=== PATIENT | female | born 1995 | race Hispanic/Latino ===

== ENCOUNTER 2016-06-06 12:49 | Emergency (ER) | payer SELFPAY ==
[~2016-06-06] VITALS: Ht 167.6 cm; Wt 87.5 kg
[~2016-06-06 12:49] MED LIST: IBUPROFEN800 MG PO; NAPROSYN500 MG PO; NORCO 5/3251 TABLET PO; PERCOCET 5/31 TABLET PO; PRENATAL TABLE1 EAC3 PO; ZOFRAN ODT4 MG PO; ZOFRAN4 MG PO
[2016-06-06 13:48] LABS: HEMATOCRIT 39.6 % (36.0-46.0); MCH 28.2 PG (29.0-34.0); MCHC 34.3 G/DL (30.0-36.0); MCV 82.2 FL (83-99); MEAN PLAT.VOLUME 11.3 uM^3 (9.5-12.4); PLATELET COUNT 223 K/uL (156-360); RBC DIS.WIDTH-CV 13.3 % (11.8-14.6); RBC DIS.WIDTH-SD 39.1 % (39-53); RED BLOOD COUNT 4.82 M/uL (3.80-5.20); WHITE BLOOD COUNT 7.6 K/uL (4.1-10.2)
[2016-06-06 14:00] LABS: CHLORIDE 108 mEq/L (99-109); SODIUM 141 mEq/L (136-147)
[2016-06-06 14:02] LABS: GLUCOSE 111 mg/dL (70-99)
[2016-06-06 14:04] LABS: ANION GAP 12 MEQ/L (2-14)
[2016-06-06 14:05] LABS: TOTAL BILIRUBIN 0.3 mg/dL (0.0-1.0)
[2016-06-06 14:06] LABS: ALKALINE PHOSPHATASE 100 IU/L (3-129); GFR ESTIMATE (CALCULATED) > 59 mL/min/
[2016-06-06 14:07] LABS: UREA NITROGEN (BUN) 12 mg/dL (9-23)
[2016-06-06 14:15] LABS: QUANTITATIVE HCG < 4.0 MIU/ML
[2016-06-06 15:35] LABS: LIPASE 21 U/L (1.0-51.0)
[2016-06-06 16:31] LABS: BILIRUBIN NEGATIVE; BLOOD NEGATIVE; COLOR YELLOW ((YELLOW)); GLUCOSE (STRIP) NEGATIVE; KETONES NEGATIVE; LEUKOCYTES NEGATIVE; NITRITE NEGATIVE; PROTEIN (STRIP) TRACE; SPECIFIC GRAVITY 1.031 (1.000-1.030); UROBILINOGEN 0.2 MG/DL (0.2-1.0)
[2016-06-06 16:42] LABS: ADD MIUA? NO; UCUL ADDED? NO
[2016-06-06] MEDS ORDERED: ULTRACET1 TABLET PO (17:07)
[2016-06-06] MEDS ORDERED: ZOFRAN ODT4 MG PO (17:07)
[2016-06-06] MEDS ORDERED: MOTRIN600 MG PO (17:07)
[2016-06-06 17:29] VITALS: BP 130/87
== END 2016-06-06 17:32 | disposition home or self-care (01) ==
LOC: EME 12:49
DX: K80.70 Calculus of gallbladder and bile duct without cholecystitis without obstruction (principal); E86.0 Dehydration
CPT/HCPCS: 76705; 80053; 81003; 83690; 84702; 85027; 99281; 99284; J3010

== ENCOUNTER 2016-07-02 08:49 | Day surgery (SDC) | payer OTHER ==
[~2016-07-02] VITALS: Ht 165.1 cm; Wt 90.0 kg
[~2016-07-02 08:49] MED LIST changes: +MOTRIN600 MG PO; +ULTRACET1 TABLET PO
[2016-07-02 09:03] VITALS: BP 123/81
[2016-07-02] MEDS ORDERED: COLACE100 MG PO (12:06)
[2016-07-02] MEDS ORDERED: PERCOCET 5/31 TABLET PO (12:06)
[2016-07-02 14:07] VITALS: BP 121/70
[2016-07-02 15:10] VITALS: BP 126/61
[2016-07-02 16:36] VITALS: BP 124/65
== END 2016-07-02 17:17 | disposition home or self-care (01) ==
LOC: SDC 08:49
PROC: 0FT44ZZ Resection of Gallbladder, Percutaneous Endoscopic Approach (ICD-10-PCS; principal; 2016-07-02)
DX: K80.10 Calculus of gallbladder with chronic cholecystitis without obstruction (principal)
CPT/HCPCS: 88304; J0330; J0690; J1100; J1170; J1885; J2250; J2405; J2710; J2765; J3010

== ENCOUNTER 2016-11-08 20:45 | Emergency (ER) | payer OTHER ==
[~2016-11-08] VITALS: Ht 167.6 cm; Wt 90.8 kg
[~2016-11-08 20:45] MED LIST changes: +COLACE100 MG PO
[2016-11-08 23:11] LABS: HEMATOCRIT 38.5 % (36.0-46.0); MCH 27.5 PG (29.0-34.0); MCHC 32.7 G/DL (30.0-36.0); MCV 84.1 FL (83-99); MEAN PLAT.VOLUME 11.7 uM^3 (9.5-12.4); PLATELET COUNT 214 K/uL (156-360); RBC DIS.WIDTH-SD 39.7 % (39-53); RED BLOOD COUNT 4.58 M/uL (3.80-5.20); WHITE BLOOD COUNT 8.4 K/uL (4.1-10.2)
[2016-11-08 23:20] LABS: CHLORIDE 109 mEq/L (99-109); POTASSIUM 3.8 mEq/L (3.7-5.4); SODIUM 141 mEq/L (136-147)
[2016-11-08 23:22] LABS: GLUCOSE 85 mg/dL (70-99)
[2016-11-08 23:23] LABS: ANION GAP 7 MEQ/L (2-14)
[2016-11-08 23:26] LABS: GFR ESTIMATE (CALCULATED) > 59 mL/min/; UREA NITROGEN (BUN) 12 mg/dL (9-23)
[2016-11-08 23:36] LABS: QUANTITATIVE HCG < 4.0 MIU/ML
[2016-11-09 00:23] VITALS: BP 145/99
== END 2016-11-09 00:24 | disposition home or self-care (01) ==
LOC: EME 20:45
PROVIDERS: Physician Assistant
DX: R51 Headache (principal); H53.149 Visual discomfort, unspecified
CPT/HCPCS: 70450; 80048; 84702; 85027; 99281; 99284; J1200; J2765; J7030

== ENCOUNTER 2017-04-30 16:08 | Emergency (ER) | payer OTHER ==
[~2017-04-30] VITALS: Ht 167.6 cm; Wt 91.2 kg
[2017-04-30 19:55] LABS: HEMATOCRIT 42.3 % (36.0-46.0); MCH 28.3 PG (29.0-34.0); MCHC 33.6 G/DL (30.0-36.0); MCV 84.3 FL (83-99); MEAN PLAT.VOLUME 11.2 uM^3 (9.5-12.4); PLATELET COUNT 212 K/uL (156-360); RBC DIS.WIDTH-CV 12.7 % (11.8-14.6); RBC DIS.WIDTH-SD 38.7 % (39-53); RED BLOOD COUNT 5.02 M/uL (3.80-5.20); WHITE BLOOD COUNT 7.2 K/uL (4.1-10.2)
[2017-04-30 20:00] LABS: CHLORIDE 104 mEq/L (99-109); POTASSIUM 3.9 mEq/L (3.7-5.4); SODIUM 141 mEq/L (136-147)
[2017-04-30 20:02] LABS: GLUCOSE 119 mg/dL (70-99)
[2017-04-30 20:03] LABS: ANION GAP 12 MEQ/L (2-14)
[2017-04-30 20:04] LABS: TOTAL BILIRUBIN 0.2 mg/dL (0.0-1.0)
[2017-04-30 20:05] LABS: ALKALINE PHOSPHATASE 109 IU/L (3-129)
[2017-04-30 20:06] LABS: GFR ESTIMATE (CALCULATED) > 59 mL/min/
[2017-04-30 20:07] LABS: UREA NITROGEN (BUN) 9 mg/dL (9-23)
[2017-04-30 20:09] LABS: LIPASE 20 U/L (1.0-51.0)
[2017-04-30 20:15] LABS: QUANTITATIVE HCG < 4.0 MIU/ML
[2017-04-30] MEDS ORDERED: ZOFRAN4 MG PO (20:53)
[2017-04-30] MEDS ORDERED: AMOXICILLIN875 MG PO (20:53)
[2017-04-30 21:36] VITALS: BP 122/64
== END 2017-04-30 21:37 | disposition home or self-care (01) ==
LOC: EME 16:08
PROVIDERS: Physician Assistant
DX: J02.0 Streptococcal pharyngitis (principal); B95.5 Unspecified streptococcus as the cause of diseases classified elsewhere; R55 Syncope and collapse
CPT/HCPCS: 80053; 83690; 84702; 85027; 93005; 99281; 99284

== ENCOUNTER 2017-10-04 22:23 | Emergency (ER) | payer OTHER ==
[~2017-10-04] VITALS: Ht 167.6 cm; Wt 95.6 kg
[~2017-10-04 22:23] MED LIST changes: +AMOXICILLIN875 MG PO
[2017-10-04 22:45] LABS: HEMOGLOBIN 13.2 G/DL (11.9-15.5); MCH 28.3 PG (29.0-34.0); MCHC 33.8 G/DL (30.0-36.0); MCV 83.5 FL (83-99); PLATELET COUNT 216 K/uL (156-360); RBC DIS.WIDTH-CV 12.7 % (11.8-14.6); RBC DIS.WIDTH-SD 38.5 % (39-53); RED BLOOD COUNT 4.67 M/uL (3.80-5.20); WHITE BLOOD COUNT 9.2 K/uL (4.1-10.2)
[2017-10-04 22:57] LABS: CHLORIDE 105 mEq/L (99-109); POTASSIUM 3.9 mEq/L (3.7-5.4); SODIUM 141 mEq/L (136-147)
[2017-10-04 22:59] LABS: GLUCOSE 98 mg/dL (70-99)
[2017-10-04 23:03] LABS: CREATININE 0.7 mg/dL (0.6-1.3); GFR ESTIMATE (CALCULATED) > 59 mL/min/
[2017-10-04 23:04] LABS: UREA NITROGEN (BUN) 16 mg/dL (9-23)
[2017-10-04] MEDS ORDERED: ALLEGRA-D 121 TABLET PO (23:44)
[2017-10-04] MEDS ORDERED: FLONASE16 G1 BOTH NARES (23:44)
[2017-10-04] MEDS ORDERED: VENTOLIN HFA18 GM IH (23:44)
[2017-10-04] MEDS ORDERED: AUGMENTIN875 MG PO (23:44)
[2017-10-05 00:04] VITALS: BP 148/89
== END 2017-10-05 00:05 | disposition home or self-care (01) ==
LOC: EME 22:23
DX: J32.9 Chronic sinusitis, unspecified (principal); J98.01 Acute bronchospasm; G43.909 Migraine, unspecified, not intractable, without status migrainosus
CPT/HCPCS: 71046; 80048; 85027; 94640; 99281; 99284

== ENCOUNTER 2017-10-17 07:57 | Emergency (ER) | payer OTHER ==
[~2017-10-17] VITALS: Ht 167.6 cm; Wt 94.0 kg
[~2017-10-17 07:57] MED LIST changes: +ALLEGRA-D 121 TABLET PO; +AUGMENTIN875 MG PO; +FLONASE16 G1 BOTH NARES; +VENTOLIN HFA18 GM IH
[2017-10-17 08:26] LABS: HEMATOCRIT 39.7 % (36.0-46.0); HEMOGLOBIN 13.8 G/DL (11.9-15.5); MCHC 34.8 G/DL (30.0-36.0); MCV 83.4 FL (83-99); PLATELET COUNT 189 K/uL (156-360); RBC DIS.WIDTH-SD 39.6 % (39-53); RED BLOOD COUNT 4.76 M/uL (3.80-5.20); WHITE BLOOD COUNT 9.8 K/uL (4.1-10.2)
[2017-10-17 08:57] LABS: ALBUMIN 4.3 G/DL (3.2-4.8); ALKALINE PHOSPHATASE 72 IU/L (3-129); ALT (GPT) 63 IU/L (3-49); AST (GOT) 35 IU/L (2-34); CHLORIDE 104 MEQ/L (99-109); CREATININE 0.7 MG/DL (0.6-1.3); GFR ESTIMATE (CALCULATED) > 59 mL/min/; GLUCOSE 109 mg/dL (70-99); SODIUM 137 MEQ/L (136-147); TOTAL BILIRUBIN 0.5 MG/DL (0.0-1.0); TOTAL PROTEIN 7.3 G/DL (6.4-8.3); UREA NITROGEN (BUN) 12 mg/dL (9-23)
[2017-10-17 10:20] LABS: APPEARANCE TURBID ((CLEAR)); BILIRUBIN NEGATIVE; BLOOD TRACE; COLOR YELLOW ((YELLOW)); GLUCOSE (STRIP) NEGATIVE; KETONES NEGATIVE; LEUKOCYTES NEGATIVE; NITRITE NEGATIVE; PROTEIN (STRIP) NEGATIVE; UROBILINOGEN 0.2 MG/DL (0.2-1.0)
[2017-10-17 10:23] LABS: EPITHELIAL CELLS 1+ /HPF; MUCUS 1+ /LPF
[2017-10-17 10:24] LABS: AMORPHOUS URATES CRYSTALS 2+; BACTERIA NONE SEEN /HPF; RED BLOOD CELLS 0-5 /HPF (0-5); UCUL ADDED? NO; WHITE BLOOD CELLS 0-5 /HPF (0-5)
[2017-10-17 10:33] LABS: QUANTITATIVE HCG < 4.0 MIU/ML
[2017-10-17] MEDS ORDERED: TAMIFLU75 MG PO (11:39)
[2017-10-17] MEDS ORDERED: COMPAZINE10 MG PO (11:39)
[2017-10-17 12:25] VITALS: BP 112/58
== END 2017-10-17 12:29 | disposition home or self-care (01) ==
LOC: EME 07:57
PROVIDERS: Emergency Medicine
DX: J11.1 Influenza due to unidentified influenza virus with other respiratory manifestations (principal)
CPT/HCPCS: 71046; 80053; 81003; 83605; 84702; 85027; 87502; 99281; 99285; J0780; J2405

== ENCOUNTER 2017-10-18 14:19 | Emergency (ER) | payer OTHER ==
[~2017-10-18] VITALS: Ht 167.6 cm; Wt 94.7 kg
[~2017-10-18 14:19] MED LIST changes: +COMPAZINE10 MG PO; +TAMIFLU75 MG PO
[2017-10-18 14:59] VITALS: BP 110/83
[2017-10-19] MEDS ORDERED: MOTRIN800 MG PO (02:58)
[2017-10-19] MEDS ORDERED: NORCO 7.5/321 TABLET PO (02:58)
== END 2017-10-18 16:49 | disposition home or self-care (01) ==
LOC: EME 14:19
DX: B08.4 Enteroviral vesicular stomatitis with exanthem (principal)
CPT/HCPCS: 99281; 99283

== ENCOUNTER 2017-10-19 01:49 | Emergency (ER) | payer OTHER ==
[~2017-10-19] VITALS: Ht 167.6 cm; Wt 93.4 kg
[2017-10-19] MEDS ORDERED: NORCO 7.5/321 TABLET PO (02:58)
[2017-10-19] MEDS ORDERED: MOTRIN800 MG PO (02:58)
[2017-10-19 03:11] VITALS: BP 136/87
== END 2017-10-19 03:12 | disposition home or self-care (01) ==
LOC: EME 01:49
DX: B08.4 Enteroviral vesicular stomatitis with exanthem (principal)
CPT/HCPCS: 99281; 99283

== ENCOUNTER 2017-10-19 20:10 | Emergency (ER) | payer OTHER ==
[~2017-10-19] VITALS: Ht 167.6 cm; Wt 93.4 kg
[~2017-10-19 20:10] MED LIST changes: +MOTRIN800 MG PO; +NORCO 7.5/321 TABLET PO
[2017-10-19 22:15] LABS: HEMATOCRIT 38.3 % (36.0-46.0); MCH 28.4 PG (29.0-34.0); MCHC 33.9 G/DL (30.0-36.0); MCV 83.8 FL (83-99); PLATELET COUNT 182 K/uL (156-360); RBC DIS.WIDTH-SD 39.8 % (39-53); RED BLOOD COUNT 4.57 M/uL (3.80-5.20); WHITE BLOOD COUNT 5.7 K/uL (4.1-10.2)
[2017-10-19 22:22] LABS: INTER. NORMALIZED RATIO 1.1
[2017-10-19 22:23] LABS: ALBUMIN 4.2 g/dL (3.2-4.8)
[2017-10-19 22:24] LABS: CHLORIDE 104 mEq/L (99-109); POTASSIUM 3.8 mEq/L (3.7-5.4); PTT 33.6 SEC (25-37); SODIUM 137 mEq/L (136-147)
[2017-10-19 22:26] LABS: TOTAL PROTEIN 7.6 g/dL (6.4-8.3)
[2017-10-19 22:28] LABS: TOTAL BILIRUBIN 0.4 mg/dL (0.0-1.0)
[2017-10-19 22:29] LABS: ALKALINE PHOSPHATASE 94 IU/L (3-129)
[2017-10-19 22:30] LABS: CREATININE 0.7 mg/dL (0.6-1.3); GFR ESTIMATE (CALCULATED) > 59 mL/min/
[2017-10-19 22:31] LABS: AST (GOT) 66 IU/L (2-34); UREA NITROGEN (BUN) 12 mg/dL (9-23)
[2017-10-19 22:32] LABS: ALT (GPT) 107 IU/L (3-49)
[2017-10-19 22:33] LABS: LIPASE 16 U/L (1.0-51.0)
[2017-10-19 22:38] LABS: QUANTITATIVE HCG < 4.0 MIU/ML
[2017-10-19 22:56] LABS: GLUCOSE 77 mg/dL (70-99)
[2017-10-19 23:58] LABS: MONOSPOT (MONONUCLEOSIS SEROL) NEGATIVE
[2017-10-20 00:10] VITALS: BP 125/80
== END 2017-10-20 00:35 | disposition home or self-care (01) ==
LOC: EME 20:10
PROVIDERS: Physician Assistant
DX: B08.4 Enteroviral vesicular stomatitis with exanthem (principal); R74.8 Abnormal levels of other serum enzymes
CPT/HCPCS: 76705; 80053; 81003; 83690; 84702; 85027; 85610; 85730; 86308; 99281; 99285; J2405; J7030

== ENCOUNTER → 2017-10-20 | Outpatient (CLI) | payer OTHER ==
[~2017-10-20] VITALS: Ht 167.6 cm; Wt 93.0 kg
[2017-10-20 11:48] VITALS: BP 134/81
[2017-10-20 16:07] VITALS: BP 119/67
== END | disposition home or self-care (01) ==
LOC: IVINF 11:30
DX: R11.2 Nausea with vomiting, unspecified (principal)
CPT/HCPCS: 96360; 96361; J7030